=== PATIENT | male | born 1955 | race Caucasian/White ===

== ENCOUNTER 2018-12-24 11:02 | Emergency (ER) | payer BC, OTHER ==
[~2018-12-24] VITALS: Ht 175.3 cm; Wt 127.5 kg
[~2018-12-24 11:02] MED LIST: ASPI-605 PO; METF-442 PO; PARO-144 PO
--- NOTE | 2018-12-24 11:06 | NUR ---
came in for bilateral lower extremity edema x 2 weeks, to er bed 7, hooked to candi, changed to becky, awaiting md starks
--- NOTE | 2018-12-24 11:11 | NUR ---
dr dye at bedside
[2018-12-24] MEDS ORDERED: BENA20TA9 PO (11:27)
[2018-12-24] MEDS ORDERED: RANI150T8 PO (11:27)
[2018-12-24] MEDS ORDERED: GLIP10TA11 PO (11:27)
[2018-12-24] MEDS ORDERED: TRAZ-214 PO (11:27)
[2018-12-24] MEDS ORDERED: CARV6.252 PO (11:27)
[2018-12-24] MEDS ORDERED: HYDR25TA4 PO (11:27)
[2018-12-24] MEDS ORDERED: ASPI-1152 PO (11:27)
[2018-12-24] MEDS ORDERED: CLOP75TA15 PO (11:27)
[2018-12-24] MEDS ORDERED: ATOR10TA PO (11:27)
[2018-12-24] MEDS ORDERED: CELE-85 PO (11:27)
[2018-12-24] MEDS ORDERED: DIAZ10TA4 PO (11:27)
[2018-12-24] MEDS ORDERED: FURO-145 PO (11:27)
[2018-12-24] MEDS ORDERED: TAMS-12 PO (11:27)
[2018-12-24 11:29] LABS: BASOPHILS # (AUTO) 0.1 /CMM (0.0-0.2); BASOPHILS % (AUTO) 1.1 % (0.0-2.0); EOSINOPHILS % (AUTO) 3.5 % (0.0-6.0); HEMATOCRIT 42 % (39-51); HEMOGLOBIN 13.5 g/dL (13.5-17.5); LYMPHOCYTES # (AUTO) 1.6 /CMM (0.8-4.8); MEAN CORPUSCULAR HGB CONC 33 g/dl (31.0-36.0); MEAN CORPUSCULAR VOLUME 98 fL (80-96); MONOCYTES # (AUTO) 0.8 /CMM (0.1-1.30); MONOCYTES % (AUTO) 12.8 % (2.0-12.0); NEUTROPHILS # (AUTO) 3.4 /CMM (1.8-8.9); NEUTROPHILS % (AUTO) 55.6 % (43.0-81.0); PLATELET COUNT (AUTO) 314 /CMM (150-450); RED BLOOD CELL COUNT(AUTO) 4.23 MIL/uL (4.5-6.0); WHITE BLOOD COUNT (AUTO) 6.1 K/uL (4.3-11.0)
[2018-12-24] MEDS ORDERED: VANCOMYCIN 1 GM in IV D5W 250 ML IV ONE (11:30)
[2018-12-24] MEDS ORDERED: PIPERACILLIN /TAZOBACTAM 3.375 G in IV D5W 50 ML IV ONE (11:30)
[2018-12-24 11:43] LABS: CALCIUM, SERUM 8.9 mg/dL (8.5-10.1); CARBON DIOXIDE 31 mmol/L (21-32); CHLORIDE 103 mmol/L (98-107); CREATININE 0.7 mg/dL (0.6-1.3); GLUCOSE 282 mg/dL (74-106); POTASSIUM 3.5 mmol/L (3.5-5.1); SODIUM SERUM 142 mmol/L (136-145); UREA NITROGEN, BLOOD 11 mg/dL (7-18)
[2018-12-24 11:48] LABS: ALANINE AMINOTRANSFERASE 34 U/L (12-78); ALKALINE PHOSPHATASE 110 U/L (46-116); ASPARTATE AMINOTRANSFERASE 33 U/L (15-37); BILIRUBIN,DIRECT 0.1 mg/dL (0.0-0.2); BILIRUBIN,TOTAL 0.4 mg/dL (0.2-1.0); TOTAL PROTEIN, SERUM 7.8 g/dL (6.4-8.2)
--- NOTE | 2018-12-24 11:57 | NUR ---
us tech at bedside
--- NOTE | 2018-12-24 12:33 | NUR ---
MARCIA BIODIESEL ENGINEERING MANAGER STATES WILL PRESENT CASE TO MD AND CALL BACK WITH TRANSFER DECISION
[2018-12-24 15:30] VITALS: BP 130/85
--- NOTE | 2018-12-24 15:37 | NUR ---
Called [facility], [phone] and stated "I will f[facility]u will [facility] for bed availability". Primary RN aware.
--- NOTE | 2018-12-24 15:41 | NUR ---
Called Angeles PURCELL at [facility] at [phone], explained Angeles that the patient is waiting to be transfer to [facility] since 12:30pm. Per Angeles, [facility] doesn't have a bed available ansd she is waiting on a bed. I explain Angeles that they have 30 min to initiate the transfer and an hour to transfer the patient from ER. I gave Angeles until 1600 to initiate the transfer to [facility] including Bed #, number to give report, and ambulance pick remover time. If I don't hear back from Angeles by 16:00, I expalined Angeles that I will admit the patient and [facility] will take full responsability for this Inpatient admission.
--- NOTE | 2018-12-24 15:53 | NUR ---
Inpatient hospital stay [facility] regarding post-stabilization care - non contracted faxed to JAZZY Reynoso at [facility] [place], @ 15:53 - Faxed OK. [employer] confirmation [phone]
--- NOTE | 2018-12-24 16:01 | NUR ---
Called ER and Admitting and gave them the OK to admit the patient. --- Annia Seals CM
--- NOTE | 2018-12-24 16:14 | NUR ---
CALLED NURSING SUP FOR [facility] BED
--- NOTE | 2018-12-24 16:14 | NUR ---
Patient does not wish to proceed with medical care recommended by Radha Jean Baptiste. Patient given information related to possible complications, up to and including , which could occur as a result of leaving the hospital at this time. Patient verbalizes understanding of risks involved due to leaving against medical advice. Patient has signed AMA form.
== END 2018-12-24 16:27 | disposition left against medical advice (07) ==
LOC: ER 11:02
DX: L03.116 Cellulitis of left lower limb (principal); L03.115 Cellulitis of right lower limb; R60.0 Localized edema; I45.10 Unspecified right bundle-branch block; I50.9 Heart failure, unspecified; J44.9 Chronic obstructive pulmonary disease, unspecified; E11.9 Type 2 diabetes mellitus without complications; F17.200 Nicotine dependence, unspecified, uncomplicated; Z98.890 Other specified postprocedural states; Z79.82 Long term (current) use of aspirin
CPT/HCPCS: 36415; 71045; 80048; 80076; 83605; 84145; 84484; 85025; 85730; 87040 ×2; 87081; 93005; 93970; 96365; 96367; 99284; J2543; J3370; J7060 ×2; 87186-TC

== ENCOUNTER 2018-12-26 18:45 | Emergency (ER) | payer OTHER ==
[~2018-12-26] VITALS: Ht 193 cm; Wt 129.3 kg
[~2018-12-26 18:45] MED LIST changes: +ASPI-1152 PO; -ASPI-605 PO; +ATOR10TA PO; +BENA20TA9 PO; +CARV6.252 PO; +CELE-85 PO; +CLOP75TA15 PO; +DIAZ10TA4 PO; +FURO-145 PO; +GLIP10TA11 PO; +HYDR25TA4 PO; -PARO-144 PO; +RANI150T8 PO; +TAMS-12 PO; +TRAZ-214 PO
--- NOTE | 2018-12-26 18:54 | NUR ---
called in ed waiting room. patient states not ready to be triage yet.
--- NOTE | 2018-12-26 19:04 | NUR ---
"BLE swelling, redness and itching and pain x 3 months." PT AAOX4, -SOB, NAD NOTED, VSS, PENDING MD GUPTA
[2018-12-26] MEDS ORDERED: PIPERACILLIN /TAZOBACTAM 3.375 G in IV D5W 50 ML IV ONE (19:30)
[2018-12-26] MEDS ORDERED: VANCOMYCIN 1 GM in IV D5W 250 ML IV ONE (19:30)
[2018-12-26 19:43] LABS: BASOPHILS # (AUTO) 0.1 /CMM (0.0-0.2); BASOPHILS % (AUTO) 1.2 % (0.0-2.0); EOSINOPHILS % (AUTO) 3.7 % (0.0-6.0); HEMATOCRIT 40 % (39-51); HEMOGLOBIN 13.4 g/dL (13.5-17.5); LYMPHOCYTES # (AUTO) 1.6 /CMM (0.8-4.8); LYMPHOCYTES % (AUTO) 24.1 % (20.0-44.0); MEAN CORPUSCULAR HGB CONC 33 g/dl (31.0-36.0); MEAN CORPUSCULAR VOLUME 98 fL (80-96); MONOCYTES % (AUTO) 14.5 % (2.0-12.0); NEUTROPHILS # (AUTO) 3.8 /CMM (1.8-8.9); NEUTROPHILS % (AUTO) 56.5 % (43.0-81.0); PLATELET COUNT (AUTO) 318 /CMM (150-450); WHITE BLOOD COUNT (AUTO) 6.7 K/uL (4.3-11.0)
[2018-12-26 20:14] LABS: ALANINE AMINOTRANSFERASE 40 U/L (12-78); ALKALINE PHOSPHATASE 107 U/L (46-116); ASPARTATE AMINOTRANSFERASE 35 U/L (15-37); B-TYPE NATRIURETIC PEPTIDE 778 PG/ML (0-125); BILIRUBIN,DIRECT 0.1 mg/dL (0.0-0.2); BILIRUBIN,TOTAL 0.3 mg/dL (0.2-1.0); CALCIUM, SERUM 8.5 mg/dL (8.5-10.1); CARBON DIOXIDE 30 mmol/L (21-32); CHLORIDE 103 mmol/L (98-107); CREATININE 0.8 mg/dL (0.6-1.3); GLUCOSE 250 mg/dL (74-106); POTASSIUM 3.5 mmol/L (3.5-5.1); SODIUM SERUM 139 mmol/L (136-145); TOTAL PROTEIN, SERUM 7.5 g/dL (6.4-8.2); UREA NITROGEN, BLOOD 8 mg/dL (7-18)
--- NOTE | 2018-12-26 21:40 | NUR ---
Tucker tate in ED - 12/26/18 at 2141 by MIQUEL PER LENARD (REGAL BRIGADIER) PT WILL BE TRANSFERRED TO [facility]. ACCEPTED BY DR. LIU. PENDING BED/TRANSFER INFORMATION
--- NOTE | 2018-12-26 21:42 | NUR ---
PER LENARD ([facility] HOME CARE SPECIALIST [phone]) PT WILL BE TRANSFERRED TO [facility]. ACCEPTED BY DR. LIU. PENDING BED/TRANSFER INFORMATION
--- NOTE | 2018-12-26 22:00 | NUR ---
RECIEVED BED 310-2 AT [facility]. 90 MIN AMBULANCE ETA. NUMBER FOR REPORT GRACIA
[2018-12-26 22:09] VITALS: BP 153/46
--- NOTE | 2018-12-26 22:37 | NUR ---
REPORT GIVEN TO GRACIA GAINES AT [facility]
--- NOTE | 2018-12-27 00:57 | NUR ---
PT TRANSPORTED TO [facility] VIA PRIVATE AMBULANCE PT LEFT IN STABLE CONDITION, VSS, NAD NOTED. REPORT GIVEN TO AMBULANCE STAFF
== END 2018-12-27 00:59 | disposition short-term general hospital (02) ==
LOC: ER 18:50
DX: L03.116 Cellulitis of left lower limb (principal); L03.115 Cellulitis of right lower limb; E11.65 Type 2 diabetes mellitus with hyperglycemia; I50.9 Heart failure, unspecified; J44.9 Chronic obstructive pulmonary disease, unspecified; F17.200 Nicotine dependence, unspecified, uncomplicated; I45.10 Unspecified right bundle-branch block; Z79.82 Long term (current) use of aspirin; Z79.899 Other long term (current) drug therapy; Z85.72 Personal history of non-Hodgkin lymphomas; Z98.890 Other specified postprocedural states
CPT/HCPCS: 36415; 71045; 80048; 80076; 83605 ×2; 83880; 84484; 85025; 85730; 87040 ×2; 93005; 96365; 96368; 99285; J2543; J3370; J7060 ×2